=== PATIENT | male | born 1975 ===

== ENCOUNTER 2017-03-19 10:49 | Emergency (ER) | payer SELFPAY ==
[~2017-03-19 10:49] MED LIST: MOTRIN600 MG PO; NORCO 10/325 TA1 TAB PO; NORCO 10/3251 TAB PO; TRAMADOL HCL50 MG PO; ULTRAM50 MG PO; ZESTRIL10 M1 PO; ZITHROMAX1 G/PKT PO; ZOFRAN4 M1 PO
[2017-03-19] MEDS ORDERED: NORCO 5-325 TA1 EACH PO (12:23)
== END 2017-03-19 12:35 ==
LOC: EDMED 10:49
PROC: 2W3CX1Z Immobilization of Right Lower Arm using Splint (ICD-10-PCS; principal; 2017-03-19)
DX: S69.91XA Unspecified injury of right wrist, hand and finger(s), initial encounter (principal); Z98.890 Other specified postprocedural states; F17.200 Nicotine dependence, unspecified, uncomplicated; W18.39XA Other fall on same level, initial encounter; Y92.019 Unspecified place in single-family (private) house as the place of occurrence of the external cause